=== PATIENT | male | born 1930 | race Caucasian/White ===

== ENCOUNTER 2022-01-27 15:20 | Inpatient (IN) | payer MEDICARE, OTHER ==
[~2022-01-27] VITALS: Ht 180.3 cm; Wt 96.0 kg
[2022-01-27 16:09] LABS: BASOPHILS # (AUTO) 0.1 X10'3 (0-0.2); BASOPHILS % (AUTO) 0.8 % (0-1); EOSINOPHILS # (AUTO) 0.5 X10'3 (0-0.9); EOSINOPHILS % (AUTO) 6.3 % (0-6); HEMATOCRIT 47.3 % (42.0-52.0); LYMPHOCYTES # (AUTO) 2.6 X10'3 (1.1-4.8); LYMPHOCYTES % (AUTO) 34.3 % (21-51); MEAN CORPUSCULAR HEMOGLOBIN 32.5 PG (27.0-31.0); MEAN CORPUSCULAR HGB CONC 33.8 g/dL (33.0-36.5); MEAN CORPUSCULAR VOLUME 96.2 FL (78-98); MEAN PLATELET VOLUME 9.9 FL (7.4-10.4); NEUTROPHILS # (AUTO) 3.5 X10'3 (1.8-7.7); NEUTROPHILS % (AUTO) 45.6 % (42-75); PLATELET COUNT 144 X10'3 (140-440); RED BLOOD COUNT 4.92 X10'6 (4.70-6.10); RED CELL DISTRIBUTION WIDTH 14.4 % (11.5-14.5); WHITE BLOOD COUNT 7.6 X10'3 (4.5-11.0)
[2022-01-27 16:21] LABS: ALANINE AMINOTRANSFERASE 16 U/L (12-78); ALBUMIN 3.9 G/DL (3.4-5.0); ALBUMIN/GLOBULIN RATIO 1.3 (1.1-1.5); ALKALINE PHOSPHATASE 120 IU/L (46-116); ANION GAP 2 (8-16); ASPARTATE AMINO TRANSFERASE 13 U/L (10-37); BILIRUBIN,TOTAL 0.7 MG/DL (0.1-1.0); BLOOD UREA NITROGEN 18 MG/DL (7-18); BUN/CREATININE RATIO 13.6 (5.4-32.0); CALCIUM 8.5 MG/DL (8.5-10.1); CHLORIDE 111 MMOL/L (99-107); CREATININE 1.32 MG/DL (0.60-1.10); GLUCOSE 94 MG/DL (70-104); SODIUM 144 MMOL/L (135-145); TOTAL CARBON DIOXIDE 30.6 MMOL/L (24-32); eGFR 51 ML/MIN
--- NOTE | 2022-01-27 16:37 | NUR ---
[facility] AT BEDSIDE.
[2022-01-27] MEDS ORDERED: FURO-150 PO (17:00)
[2022-01-27] MEDS ORDERED: MIRT-88 PO (17:00)
[2022-01-27] MEDS ORDERED: NAPR-56 PO (17:00)
[2022-01-27] MEDS ORDERED: LOP25T PO (17:00)
[2022-01-27] MEDS ORDERED: AMLO5TAB PO (17:00)
[2022-01-27] MEDS ORDERED: POTA10TA37 PO (17:14)
[2022-01-27] MEDS ORDERED: IPRA4AER IH (17:14)
[2022-01-27] MEDS ORDERED: PANT-47 PO (17:14)
[2022-01-27] MEDS ORDERED: FLUT16SP11 BOTHNARES (17:14)
[2022-01-27] MEDS ORDERED: HYDROcodone/acetaminophen 5mg/325mg tablet PO PRN (18:05)
[2022-01-27] MEDS ORDERED: mag hydrox/Alum hydrox/simeth 30ml oral suspension PO PRN (18:05)
[2022-01-27] MEDS ORDERED: magnesium 2GM in 50ml NS 50 ML IV PRN (18:05)
[2022-01-27] MEDS ORDERED: POTASSIUM BICARB 20meq eff tab 20 MEQ TABLET.EFF PO PRN ×2 (18:05)
[2022-01-27] MEDS ORDERED: hydrALAZINE 20mg/ml inj. IV PRN (18:05)
[2022-01-27] MEDS ORDERED: HYDROcodone/acetaminophen 10/325mg tab PO PRN (18:05)
[2022-01-27] MEDS ORDERED: magnesium hydroxide 30ml (MOM) UD suspension PO PRN (18:05)
[2022-01-27] MEDS ORDERED: magnesium Cl slow-release 64mg tablet PO PRN (18:05)
[2022-01-27] MEDS ORDERED: bisacodyl 10mg suppository rectal RC PRN (18:05)
[2022-01-27] MEDS ORDERED: acetaminophen 650mg rectal suppository RC PRN (18:05)
[2022-01-27] MEDS ORDERED: PERFLUTREN PROTEIN-A MICROSPHR (Optison) 0.22 MG/ML 3ML VIAL IV ONE (18:05)
[2022-01-27] MEDS ORDERED: ipratropium/albuterol 3ml nebule NEB PRN ×2 (18:05→18:19)
[2022-01-27] MEDS ORDERED: ondansetron/PF 4mg/2ml inj IV PRN (18:05)
[2022-01-27] MEDS ORDERED: acetaminophen 325mg tablet PO PRN ×2 (18:05)
[2022-01-27] MEDS ORDERED: normal saline 1000ml 1,000 ML IV SCH (18:05)
[2022-01-27] MEDS ORDERED: diphenhydrAMINE 25mg capsule PO PRN (18:05)
[2022-01-27] MEDS ORDERED: magnesium 4gm in 100ml NS 100 ML IV PRN (18:05)
[2022-01-27] MEDS ORDERED: potassium CL 10mEq/100ml bag 100 ML IV PRN (18:05)
[2022-01-27 19:42] LABS: HEMOGLOBIN A1C 5.8 % (4.5-6.2)
[2022-01-27] MEDS: K and/or MAG REPLACEMENT MC SCH (20:00)
[2022-01-27] MEDS ORDERED: mirtazapine 15mg tablet PO SCH (21:00)
[2022-01-27] MEDS: docusate sod 100mg capsule PO SCH (21:11)
[2022-01-27] MEDS: pantoprazole 40mg Tablet.DR PO SCH (21:12)
[2022-01-27 21:29] VITALS: BP_SYST 166; BP_SYST 176; BP_SYST 179; BP_DIAS 118; BP_DIAS 73; BP_DIAS 85
[2022-01-27 22:00] VITALS: BP 156/77
[2022-01-28] MEDS: heparin, porcine 5000 units/ml vial SQ SCH ×2 (00:14→08:52)
[2022-01-28] MEDS: hyDRALAzine 10mg tablet PO SCH ×2 (00:14→08:51)
[2022-01-28 02:00] VITALS: BP 151/61
--- NOTE | 2022-01-28 03:22 | NUR ---
Pt transferred to unit via stretcher with personal belongings and cane. Pt is alert and oriented. B/L hearing aids at bedside in denture cup. Resting comfortably in bed.
[2022-01-28 06:00] VITALS: BP 151/64
[2022-01-28 06:48] LABS: BASOPHILS % (AUTO) 0.6 % (0-1); EOSINOPHILS # (AUTO) 0.4 X10'3 (0-0.9); EOSINOPHILS % (AUTO) 7.1 % (0-6); HEMOGLOBIN 14.6 g/dl (14.0-17.9); LYMPHOCYTES # (AUTO) 1.6 X10'3 (1.1-4.8); LYMPHOCYTES % (AUTO) 32.3 % (21-51); MEAN CORPUSCULAR HEMOGLOBIN 31.8 PG (27.0-31.0); MEAN CORPUSCULAR HGB CONC 33.2 g/dL (33.0-36.5); MEAN CORPUSCULAR VOLUME 95.8 FL (78-98); MONOCYTES # (AUTO) 0.7 X10'3 (0-0.9); NEUTROPHILS # (AUTO) 2.3 X10'3 (1.8-7.7); PLATELET COUNT 115 X10'3 (140-440); RED CELL DISTRIBUTION WIDTH 14.4 % (11.5-14.5)
[2022-01-28 07:12] LABS: ALANINE AMINOTRANSFERASE 12 U/L (12-78); ALBUMIN 3.1 G/DL (3.4-5.0); ALBUMIN/GLOBULIN RATIO 1.1 (1.1-1.5); ALKALINE PHOSPHATASE 89 IU/L (46-116); ANION GAP 5 (8-16); ASPARTATE AMINO TRANSFERASE 12 U/L (10-37); BILIRUBIN,TOTAL 0.9 MG/DL (0.1-1.0); BLOOD UREA NITROGEN 20 MG/DL (7-18); BUN/CREATININE RATIO 19.4 (5.4-32.0); CALCIUM 8.3 MG/DL (8.5-10.1); CHLORIDE 111 MMOL/L (99-107); CHOL/HDL RATIO 3.7 (0.00-4.99); CHOLESTEROL 125 MG/DL (0-200); CREATININE 1.03 MG/DL (0.60-1.10); GLUCOSE 96 MG/DL (70-104); HDL CHOLESTEROL 34 MG/DL (35-60); LDL CHOLESTEROL 78 MG/DL (50-100); MAGNESIUM 1.9 MG/DL (1.5-2.4); PHOSPHORUS 3.7 MG/DL (2.3-4.5); POTASSIUM 3.7 MMOL/L (3.5-5.1); SODIUM 143 MMOL/L (135-145); TOTAL CARBON DIOXIDE 26.7 MMOL/L (24-32); TRIGLYCERIDES 72 MG/DL (20-135); eGFR 68 ML/MIN
[2022-01-28] MEDS ORDERED: fluticasone nasal spray 16GM bottle NS SCH ×2 (08:00→14:14)
[2022-01-28] MEDS ORDERED: amLODIPine 5mg tablet PO SCH (08:00)
[2022-01-28] MEDS ORDERED: furosemide 20MG tablet PO SCH (08:00)
[2022-01-28] MEDS: K and/or MAG REPLACEMENT MC SCH (08:00)
--- NOTE | 2022-01-28 08:21 | NUR ---
Pt admitted w/ HTN w/ hx of HTN and DM per EMR. Currently on Heart Healthy diet pending PO intake, though recommend Regular or sodium restricted given geriatric age and lipids WNL w/ the exception of Low HDL. No wounds or edema noted. Pending BM this admit though receiving routine colace. Will continue to monitor. Addendum: 01/28/22 at [address] Amended: Links added.
[2022-01-28] MEDS: docusate sod 100mg capsule PO SCH (08:47)
[2022-01-28] MEDS: pantoprazole 40mg Tablet.DR PO SCH (08:48)
[2022-01-28 08:55] VITALS: BP 174/87
[2022-01-28 10:16] VITALS: BP 145/74
[2022-01-28] MEDS ORDERED: PANT-47 PO (11:00)
[2022-01-28] MEDS ORDERED: HYDR-4069 PO (11:00)
[2022-01-28 13:46] VITALS: BP 164/90
[2022-01-28 15:00] VITALS: BP 168/85
--- NOTE | 2022-01-28 18:05 | NUR ---
Pt a/ox4, bp elevated but came down after medications given. Discharge instructions reviewed with daquan and patients son. Understanding verbalized of discharge instructions. Prescriptions called into [facility] [place]. Son will potato picker. Pt will stop taking metoprolol and decrease protonix as prescribed. Pt will followup with pcp within one week. all personal belongings sent home with patient.
== END 2022-01-28 16:26 | disposition home health service (06) | DRG 305 ==
LOC: ER 15:20 → ED HOLD 18:11 → PCU 3S 20:45
PROVIDERS: ADMIT Family Medicine; ATTEND Family Medicine
DX: I16.0 Hypertensive urgency (principal); E11.9 Type 2 diabetes mellitus without complications; I10 Essential (primary) hypertension; M10.9 Gout, unspecified; F32.A Depression, unspecified; E78.5 Hyperlipidemia, unspecified; G89.29 Other chronic pain; K21.9 Gastro-esophageal reflux disease without esophagitis; R00.1 Bradycardia, unspecified; J44.9 Chronic obstructive pulmonary disease, unspecified; E78.00 Pure hypercholesterolemia, unspecified; Z87.891 Personal history of nicotine dependence; Z95.1 Presence of aortocoronary bypass graft; Z79.899 Other long term (current) drug therapy
CPT/HCPCS: 36415; 71045; 80053; 80061; 83036; 83735; 83880; 84100; 84443; 84484; 85025; 87081; 93005; 93306; 94760; 97116; 97161; 97530; 99285; G0378; J1644; J7030